=== PATIENT | male | born 1965 | race Hispanic/Latino ===

== ENCOUNTER 2020-05-12 09:57 | Outpatient (RCR) | payer BC | END 2020-05-13 | LOC: PT 09:57 | PROVIDERS: ATTEND Neurological Surgery | DX: M50.120 Mid-cervical disc disorder, unspecified level (principal); M62.81 Muscle weakness (generalized); M53.82 Other specified dorsopathies, cervical region ==

== ENCOUNTER 2020-06-04 10:00 | Outpatient (RCR) | payer BC | END 2020-06-12 | LOC: PT 10:00 | PROVIDERS: ATTEND Neurological Surgery | DX: M50.10 Cervical disc disorder with radiculopathy, unspecified cervical region (principal); M62.81 Muscle weakness (generalized); M53.82 Other specified dorsopathies, cervical region ==